=== PATIENT | female | born 1960 | race Caucasian/White ===

== ENCOUNTER 2016-09-10 21:15 | Emergency (ER) | payer OTHER ==
--- NOTE | 2016-09-10 22:32 | ED NURSING NOTES ---
Clinical Report - Nurses [facility] [place] [address] 09/10/2016 21:15 Patient: LIBERTY GONZALEZ TRIAGE Triage time 21:53. Acuity: LEVEL 4. Chief Complaint: MIGRAINE HEADACHE. 21:58. Alert. SEPSIS SCREEN: Sepsis Screen. Negative (no infection suspected/documented). ABRAHAM COMA SCORE: [place] Coma Scale: 15- eyes open spontaneously (4); best verbal response- oriented x 4 (5); best motor response- obeys commands (6). --21:58 Wilmer Dyer R.N. 21:53 09/10/16. BP: 126/69. HR: 94. RR: 16. O2 saturation: 97% on room air. Temp: 98.5 F (oral). Pain level now: 02/13. --21:58 Wilmer Dyer R.N. Weight: 77.1 kg stated. Height/Length: 64.5 inches Per Patient. BMI: 28.7. --21:56 Wilmer Dyer R.N. Medications Black Cohosh Oral. Ibuprofen Oral. Multivitamins Oral. --21:55 Wilmer Dyer R.N. Pravastatin Sodium Oral, daily (pt unsure of dose ). --21:56 Wilmer Dyer R.N. Medication/allergy information source: the patient. --21:58 Wilmer Dyer R.N. Allergies No Known Drug Allergy. --21:55 Wilmer Dyer R.N. History Arrived by private vehicle. Historian: patient. Accompanied by family. [facility] This started 1 1/2 weeks ago. 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 PAST MEDICAL HX: Immunizations: up-to-date. The patient has had a hysterectomy. SOCIAL HX: Current every day light tobacco smoker- less than 1/2 a pack per day. Occasional alcohol use. No drug use. No recent travel. No infectious disease exposure. ABUSE ASSESSMENT: No report of abuse. FALL RISK ASSESSMENT: Fall risk assessment completed. No fall risk identified. NUTRITIONAL RISK ASSESSMENT: The nutritional risk assessment revealed no deficiencies. FUNCTIONAL ASSESSMENT: Functional assessment: no impairments noted. LEARNING NEEDS ASSESSMENT: The learning needs assessment revealed no barriers. SKIN INTEGRITY ASSESSMENT: Skin integrity risk assessment completed. No skin integrity risk identified. --21:58 Wilmer Dyer R.N. PROBLEMS: Hypercholesterolemia. Ulcerative Colitis. Migraine Headache. Chronic Headache. Asthma. Eustachian Tube Dysfunction. Pharyngitis. Bronchitis. Colitis. Lumbar Radiculopathy. --21:57 Wilmer Dyer R.N. ADDITIONAL SURGERIES: Appendectomy. Cholecystectomy. Coak pouch. Coak pouch. Hysterectomy. Lower intestinal surgery. Lower intestine removal. Lower intestine removal. Oophorectomy. Salpingectomy. Tonsillectomy. --21:57 Wilmer Dyer R.N. Interventions ID band on patient. To treatment room. --21:58 Wilmer Dyer R.N. PHYSICAL ASSESSMENT 21:58. Ambulatory to room. Patient gowned. GENERAL / NEURO / PSYCH: Alert. Oriented X 4. Speech within normal limits. HEENT: No facial asymmetry noted. RESPIRATORY: Respirations not labored. SKIN: Skin is warm and dry. --21:58 Wilmer Dyer R.N. NURSING PROGRESS NOTES 21:58. Head of bed elevated. Two patient identifiers checked. Call light placed in reach. Bed placed in lowest position. Brakes of bed on. Patient ready for evaluation- chart flagged. --21:58 Wilmer Dyer R.N. 22:25 09/10/2016 Toradol (Ketorolac Tromethamine) IM 60 mg given. Given in the right ventral gluteus. Allergies verified and confirmed 5 rights. --22:29 Wilmer Dyer R.N. 22:25 09/10/2016 Benadryl (DiphenhydrAMINE HCl) IM 50 mg given. Given in the right ventral gluteus. Allergies verified, confirmed 5 rights and sedative warning given to the patient and patient's family. --22:29 Wilmer Dyer R.N. 22:26 09/10/2016 Reglan (Metoclopramide HCl) IM 10 mg given. Given in the left ventral gluteus. Allergies verified and confirmed 5 rights. --22:30 Wilmer Dyer R.N. 22:40 09/10/2016 Dilaudid (HYDROmorphone HCl PF) IM 1 mg given. Given in the left ventral gluteus. Allergies verified, confirmed 5 rights and sedative warning given to the patient and patient's family. --23:29 Wilmer Humphrey R.N. DISPOSITION / DISCHARGE 22:50 09/10/16. BP: 133/72. HR: 84. RR: 16. O2 saturation: 99% on room air. Temp: 98.3 F (oral). Pain level now: 11/14. --23:31 Wilmer Humphrey R.N. Departure time: 5. --23:33 Wilmer Humphrey R.N. 22:55. Condition at departure: improved. No learning barriers present. Discharge instructions provided and reviewed with the patient and spouse. Reviewed medication(s) dosing and course information (prescription given to pt). Reviewed referral to family practice for followup. Patient and spouse verbalized understanding. Written instructions provided in Colombian. The patient was discharged by the physician. She was discharged home and accompanied by spouse. She left the Emergency Department ambulatory and via private vehicle. Spouse driving. --23:37 Wilmer Humphrey R.N. Locked/Released at 09/10/2016 23:38 by Wilmer Humphrey R.N.
--- NOTE | 2016-09-10 22:32 | ED CLINICAL REPORT ---
Clinical Report - Physicians/Mid Levels [facility] [address] [place] [address] 09/10/2016 21:15 Patient: LIBERTY GONZALEZ Time Seen: 21:49; upon arrival, initial patient contact, initial documentation, patient care assumed. Arrived- By private vehicle. Historian- patient and spouse. HISTORY OF PRESENT ILLNESS Chief Complaint: HEADACHE and MIGRAINE HEADACHE. Is still present. This started about 1 1/2 weeks ago. It is described as similar to previous headaches and diffuse. No neck pain. Located in the facial region. At its maximum, severity described as severe. When seen in the E.D., severity described as severe. Modifying factors: worsened by bright light and noise; relieved by nothing. The patient has had photophobia and nausea. No preceding symptoms, blurred vision, numbness, weakness or vomiting. No recent travel. Similar symptoms previously: Frequently, as bad. Recent medical care: Not recently seen/assessed. REVIEW OF SYSTEMS No fever, muscle aches, sinus pressure, ear pain or sore throat. No head injury. All systems otherwise negative, except as recorded above. PAST HISTORY See nurses notes. PROBLEMS: Hypercholesterolemia. Ulcerative Colitis. Migraine Headache. Chronic Headache. Asthma. Eustachian Tube Dysfunction. Pharyngitis. Bronchitis. Colitis. Lumbar Radiculopathy. --21:57 Wilmer Dyer, R.N. ADDITIONAL SURGERIES: Appendectomy. Cholecystectomy. Coak pouch. Coak pouch. Hysterectomy. Lower intestinal surgery. Lower intestine removal. Lower intestine removal. Oophorectomy. Salpingectomy. Tonsillectomy. --21:57 Wilmer Dyer, R.N. SOCIAL HISTORY Light tobacco smoker. Occasional alcohol use. No drug use. No recent travel. Is a local resident. FAMILY HISTORY Negative. ADDITIONAL NOTES The nursing notes have been reviewed with agreement regarding the chief complaint, HPI, ROS, PMH and patient medications and allergies. PHYSICAL EXAM Vital Signs: 09/10/2016 21:53 BP: 126/69. HR: 94. RR: 16. O2 saturation: 97%. Temp: 98.5 F. Pain level now: 02/13. Have been reviewed as normal and appear to be correct. Appearance: Alert. No acute distress. Eyes: Pupils equal, round and reactive to light. Eyes normal inspection. ENT: Ears normal. Nose normal. Pharynx normal. Neck: Normal inspection. Neck supple. CVS: Normal heart rate and rhythm. Heart sounds normal. Pulses normal. Respiratory: No respiratory distress. Breath sounds normal. Back: Normal inspection. Skin: Skin warm and dry. Normal skin color. No rash. Normal skin turgor. Extremities: Extremities exhibit normal ROM. No lower extremity edema. Neuro: Oriented X 3. Alert. Mood/affect normal. Speech normal. Cranial nerves normal (as tested). No cerebellar findings. No motor deficit. No sensory deficit. PROGRESS AND PROCEDURES Patient and spouse counseled in person regarding the patient's stable condition and diagnosis. 22:32. Differential Diagnosis: I considered migraine, cluster headache, subarachnoid hemorrhage, intracranial bleed, vascular dissection, vasculitis, temporal arteritis, analgesic abuse, hypoglycemia and trigeminal neuralgia as a possible cause of headache in this patient. This is a partial list of diagnoses considered. Above considerations are based on history and physical exam. Differential diagnosis was discussed with patient and patient's spouse. Disposition: Discharged home in good and improved condition (22:32). Condition: good and stable. CLINICAL IMPRESSION Acute migraine headache without aura. INSTRUCTIONS Do not work today, tomorrow. Warnings: GENERAL WARNINGS: Return or contact your physician immediately if your condition worsens or changes unexpectedly, if not improving as expected, or if other problems arise. SPECIFICALLY, return if you develop fever, vomiting, numbness, weakness, difficulty thinking, visual disturbances, fainting or extreme fatigue. Prescription Medications: Zofran 4 mg: Take 1 orally every six hours as needed for nausea/vomiting. Dispense ten (10). No refills. Substitution is permissible. Fioricet: Take 1-2 orally every 4 hours as needed for headache. Dispense twenty (20). No refills. Substitution is permissible. Follow-up: Follow up with your doctor in about three days as needed. Call for an appointment. Summary of care provided to patient and family. Understanding of the discharge instructions verbalized by patient. (Electronically signed by Amber Smith A.R.N.P. 09/10/2016 23:15)
--- NOTE | 2016-09-10 22:32 | ED NURSING NOTES ---
Clinical Report - Nurses [facility] [place] [place] [address] 09/10/2016 21:15 Patient: LIBERTY GONZALEZ TRIAGE Triage time 21:53. Acuity: LEVEL 4. Chief Complaint: MIGRAINE HEADACHE. 21:58. Alert. SEPSIS SCREEN: Sepsis Screen. Negative (no infection suspected/documented). ABRAHAM COMA SCORE: [place] Coma Scale: 15- eyes open spontaneously (4); best verbal response- oriented x 4 (5); best motor response- obeys commands (6). --21:58 Wilmer Dyer R.N. 21:53 09/10/16. BP: 126/69. HR: 94. RR: 16. O2 saturation: 97% on room air. Temp: 98.5 F (oral). Pain level now: 02/13. --21:58 Wilmer Dyer R.N. Weight: 77.1 kg stated. Height/Length: 64.5 inches Per Patient. BMI: 28.7. --21:56 Wilmer Dyer R.N. Medications Black Cohosh Oral. Ibuprofen Oral. Multivitamins Oral. --21:55 Wilmer Dyer R.N. Pravastatin Sodium Oral, daily (pt unsure of dose ). --21:56 Wilmer Dyer R.N. Medication/allergy information source: the patient. --21:58 Wilmer Dyer R.N. Allergies No Known Drug Allergy. --21:55 Wilmer Dyer R.N. History Arrived by private vehicle. Historian: patient. Accompanied by family. [facility] This started 1 1/2 weeks ago. 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 PAST MEDICAL HX: Immunizations: up-to-date. The patient has had a hysterectomy. SOCIAL HX: Current every day light tobacco smoker- less than 1/2 a pack per day. Occasional alcohol use. No drug use. No recent travel. No infectious disease exposure. ABUSE ASSESSMENT: No report of abuse. FALL RISK ASSESSMENT: Fall risk assessment completed. No fall risk identified. NUTRITIONAL RISK ASSESSMENT: The nutritional risk assessment revealed no deficiencies. FUNCTIONAL ASSESSMENT: Functional assessment: no impairments noted. LEARNING NEEDS ASSESSMENT: The learning needs assessment revealed no barriers. SKIN INTEGRITY ASSESSMENT: Skin integrity risk assessment completed. No skin integrity risk identified. --21:58 Wilmer Dyer R.N. PROBLEMS: Hypercholesterolemia. Ulcerative Colitis. Migraine Headache. Chronic Headache. Asthma. Eustachian Tube Dysfunction. Pharyngitis. Bronchitis. Colitis. Lumbar Radiculopathy. --21:57 Wilmer Dyer R.N. ADDITIONAL SURGERIES: Appendectomy. Cholecystectomy. Coak pouch. Coak pouch. Hysterectomy. Lower intestinal surgery. Lower intestine removal. Lower intestine removal. Oophorectomy. Salpingectomy. Tonsillectomy. --21:57 Wilmer Dyer R.N. Interventions ID band on patient. To treatment room. --21:58 Wilmer Dyer R.N. PHYSICAL ASSESSMENT 21:58. Ambulatory to room. Patient gowned. GENERAL / NEURO / PSYCH: Alert. Oriented X 4. Speech within normal limits. HEENT: No facial asymmetry noted. RESPIRATORY: Respirations not labored. SKIN: Skin is warm and dry. --21:58 Wilmer Dyer R.N. NURSING PROGRESS NOTES 21:58. Head of bed elevated. Two patient identifiers checked. Call light placed in reach. Bed placed in lowest position. Brakes of bed on. Patient ready for evaluation- chart flagged. --21:58 Wilmer Dyer R.N. 22:25 09/10/2016 Toradol (Ketorolac Tromethamine) IM 60 mg given. Given in the right ventral gluteus. Allergies verified and confirmed 5 rights. --22:29 Wilmer Dyer R.N. 22:25 09/10/2016 Benadryl (DiphenhydrAMINE HCl) IM 50 mg given. Given in the right ventral gluteus. Allergies verified, confirmed 5 rights and sedative warning given to the patient and patient's family. --22:29 Wilmer Dyer R.N. 22:26 09/10/2016 Reglan (Metoclopramide HCl) IM 10 mg given. Given in the left ventral gluteus. Allergies verified and confirmed 5 rights. --22:30 Wilmer Dyer R.N. 22:40 09/10/2016 Dilaudid (HYDROmorphone HCl PF) IM 1 mg given. Given in the left ventral gluteus. Allergies verified, confirmed 5 rights and sedative warning given to the patient and patient's family. --23:29 Wilmer Humphrey R.N. DISPOSITION / DISCHARGE 22:50 09/10/16. BP: 133/72. HR: 84. RR: 16. O2 saturation: 99% on room air. Temp: 98.3 F (oral). Pain level now: 11/14. --23:31 Wilmer Humphrey R.N. Departure time: 5. --23:33 Wilmer Humphrey R.N. 22:55. Condition at departure: improved. No learning barriers present. Discharge instructions provided and reviewed with the patient and spouse. Reviewed medication(s) dosing and course information (prescription given to pt). Reviewed referral to family practice for followup. Patient and spouse verbalized understanding. Written instructions provided in [place] Island[place]. The patient was discharged by the physician. She was discharged home and accompanied by spouse. She left the Emergency Department ambulatory and via private vehicle. Spouse driving. --23:37 Wilmer Humphrey R.N. Locked/Released at 09/10/2016 23:38 by Wilmer Humphrey R.N.
--- NOTE | 2016-09-10 22:33 | ED ORDER SUMMARY ---
..... Patient: LIBERTY GONZALEZ OrderSheet [facility] VisitID: [id number] [place] [address] 56y, F Registration Date/Time: 09/10/2016 ORDER SHEET Weight: 77.1 kg (stated) Allergies: No Known Drug Allergy GENERAL ORDERS: MEDICATION ORDERS: Toradol IM 60 mg (NOW) (22:13 09/10/2016 HBivens A.R.N.P.) (Ack 22:16 JQuivey R.N.) (22:29 JQuivey R.N.) Benadryl IM 50 mg (NOW) (22:13 09/10/2016 HBivens A.R.N.P.) (Ack 22:16 JQuivey R.N.) (22:29 JQuivey R.N.) - (reglan 10mg im stat) (22:13 09/10/2016 HBivens A.R.N.P.) (Ack 22:16 JQuivey R.N.) (22:30 JQuivey R.N.) Dilaudid IM 1 mg (HIGH ALERT MEDICATION, NOW) (22:48 09/10/2016 HBivens A.R.N.P.) (Ack 22:50 JQuivey R.N.) (23:29 JRomanelli R.N.) IV FLUIDS: ORDER SHEET NOTES: [Electronically signed by Amber SmithR.N.P. (23:15 09/10/2016)] [Electronically signed by Wilmer Humphrey R.N. (23:38 09/10/2016)] [Electronically locked/signed by Wilmer Humphrey R.N. (23:38 09/10/2016)]
--- NOTE | 2016-09-10 22:33 | ED ORDER SUMMARY ---
..... Patient: LIBERTY GONZALEZ OrderSheet [facility] VisitID: [id number] [place] [address] 56y, F Registration Date/Time: 09/10/2016 ORDER SHEET Weight: 77.1 kg (stated) Allergies: No Known Drug Allergy GENERAL ORDERS: MEDICATION ORDERS: Toradol IM 60 mg (NOW) (22:13 09/10/2016 HBivens A.R.N.P.) (Ack 22:16 JQuivey R.N.) (22:29 JQuivey R.N.) Benadryl IM 50 mg (NOW) (22:13 09/10/2016 HBivens A.R.N.P.) (Ack 22:16 JQuivey R.N.) (22:29 JQuivey R.N.) - (reglan 10mg im stat) (22:13 09/10/2016 HBivens A.R.N.P.) (Ack 22:16 JQuivey R.N.) (22:30 JQuivey R.N.) Dilaudid IM 1 mg (HIGH ALERT MEDICATION, NOW) (22:48 09/10/2016 HBivens A.R.N.P.) (Ack 22:50 JQuivey R.N.) (23:29 JRomanelli R.N.) IV FLUIDS: ORDER SHEET NOTES: [Electronically signed by Amber SmithR.N.P. (23:15 09/10/2016)] [Electronically signed by Wilmer Humphrey R.N. (23:38 09/10/2016)] [Electronically locked/signed by Wilmer Humphrey R.N. (23:38 09/10/2016)]
--- NOTE | 2016-09-10 23:39 | ED MAR SUMMARY ---
..... Medication Administration Record [facility] [address] [place] [address] Patient: LIBERTY GONZALEZ Visit ID: [id number] 56y, F Weight: 77.1 kg Height/Length: 64.5 in BMI: 28.7 ALLERGIES: No Known Drug Allergy Given 22:09/10/2016 Wilmer Dyer RDeoNDeo Medication Administered: TORADOL [IM] (KETOROLAC TROMETHAMINE), Dose: 60 mg IM. Medication Ordered: Toradol IM 60 mg (NOW). Given 22:09/10/2016 Wilmer Dyer R.NDeo Medication Administered: BENADRYL [IM] (DIPHENHYDRAMINE HCL), Dose: 50 mg IM. Medication Ordered: Benadryl IM 50 mg (NOW). Given 22:09/10/2016 Wilmer Dyer RDeoNDeo Medication Administered: REGLAN [IM] (METOCLOPRAMIDE HCL), Dose: 10 mg IM. Medication Ordered: - (reglan 10mg im stat). Given 22:09/10/2016 Wilmer Humphrey RDeoNDeo Medication Administered: DILAUDID [IM] (HYDROMORPHONE HCL PF), Dose: 1 mg IM. Medication Ordered: Dilaudid IM 1 mg (HIGH ALERT MEDICATION, NOW).
--- NOTE | 2016-09-10 23:39 | ED MED RECONCILIATION SUMMARY ---
Patient: LIBERTY GONZALEZ Medication Reconciliation Report [facility] VisitID: [id number] [address] [place] [address] 56y, F Registration Date/Time: 09/10/2016 Weight: 77.1 kg Height/Length: 60 in. BMI: 28.7 ALLERGIES: No Known Drug Allergy The patient's Home Medications are listed below: THE FOLLOWING MEDICATIONS NEED TO BE RECONCILED: Black Cohosh Oral Ibuprofen Oral Multivitamins Oral Pravastatin Sodium Oral, daily, pt unsure of dose The source(s) of the original Home Medication information: patient The following Medications were given to the patient in the Emergency Department: Toradol [IM] IM 60 mg, administered: 09/10/2016 10:25:00 PM Benadryl [IM] IM 50 mg, administered: 09/10/2016 10:25:00 PM Reglan [IM] IM 10 mg, administered: 09/10/2016 10:26:00 PM Dilaudid [IM] IM 1 mg, administered: 09/10/2016 10:40:00 PM The following Medications were prescribed to the patient: Zofran 4 mg: Take 1 orally every six hours as needed for nausea/vomiting. Dispense ten (10). No refills. Substitution is permissible. -- Amber Smith, A.R.N.P. Fioricet: Take 1-2 orally every 4 hours as needed for headache. Dispense twenty (20). No refills. Substitution is permissible. -- Amber Smith, A.R.N.P.
--- NOTE | 2016-09-10 23:39 | ED MAR SUMMARY ---
..... Medication Administration Record [facility] [address] [place] [address] Patient: LIBERTY GONZALEZ Visit ID: [id number] 56y, F Weight: 77.1 kg Height/Length: 64.5 in BMI: 28.7 ALLERGIES: No Known Drug Allergy Given 22:09/10/2016 Wilmer Dyer RDeoNDeo Medication Administered: TORADOL [IM] (KETOROLAC TROMETHAMINE), Dose: 60 mg IM. Medication Ordered: Toradol IM 60 mg (NOW). Given 22:09/10/2016 Wilmer Dyer R.NDeo Medication Administered: BENADRYL [IM] (DIPHENHYDRAMINE HCL), Dose: 50 mg IM. Medication Ordered: Benadryl IM 50 mg (NOW). Given 22:09/10/2016 Wilmer Dyer RDeoNDeo Medication Administered: REGLAN [IM] (METOCLOPRAMIDE HCL), Dose: 10 mg IM. Medication Ordered: - (reglan 10mg im stat). Given 22:09/10/2016 Wilmer Humphrey RDeoNDeo Medication Administered: DILAUDID [IM] (HYDROMORPHONE HCL PF), Dose: 1 mg IM. Medication Ordered: Dilaudid IM 1 mg (HIGH ALERT MEDICATION, NOW).
--- NOTE | 2016-09-10 23:39 | ED MED RECONCILIATION SUMMARY ---
Patient: LIBERTY GONZALEZ Medication Reconciliation Report [facility] VisitID: [id number] [address] [place] [address] 56y, F Registration Date/Time: 09/10/2016 Weight: 77.1 kg Height/Length: 60 in. BMI: 28.7 ALLERGIES: No Known Drug Allergy The patient's Home Medications are listed below: THE FOLLOWING MEDICATIONS NEED TO BE RECONCILED: Black Cohosh Oral Ibuprofen Oral Multivitamins Oral Pravastatin Sodium Oral, daily, pt unsure of dose The source(s) of the original Home Medication information: patient The following Medications were given to the patient in the Emergency Department: Toradol [IM] IM 60 mg, administered: 09/10/2016 10:25:00 PM Benadryl [IM] IM 50 mg, administered: 09/10/2016 10:25:00 PM Reglan [IM] IM 10 mg, administered: 09/10/2016 10:26:00 PM Dilaudid [IM] IM 1 mg, administered: 09/10/2016 10:40:00 PM The following Medications were prescribed to the patient: Zofran 4 mg: Take 1 orally every six hours as needed for nausea/vomiting. Dispense ten (10). No refills. Substitution is permissible. -- Amber Smith, A.R.N.P. Fioricet: Take 1-2 orally every 4 hours as needed for headache. Dispense twenty (20). No refills. Substitution is permissible. -- Amber Smith, A.R.N.P.
--- NOTE | 2016-09-10 23:39 | ED DISCHARGE INSTRUCTIONS ---
Patient: LIBERTY GONZALEZ General Instructions [facility] VisitID: [id number] [place] [address] 56y, F Registration Date/Time: 09/10/2016 Acute migraine headache without aura. INSTRUCTIONS Do not work today, tomorrow. Warnings: GENERAL WARNINGS: Return or contact your physician immediately if your condition worsens or changes unexpectedly, if not improving as expected, or if other problems arise. SPECIFICALLY, return if you develop fever, vomiting, numbness, weakness, difficulty thinking, visual disturbances, fainting or extreme fatigue. Prescription Medications: Zofran 4 mg: Take 1 orally every six hours as needed for nausea/vomiting. Dispense ten (10). No refills. Substitution is permissible. Fioricet: Take 1-2 orally every 4 hours as needed for headache. Dispense twenty (20). No refills. Substitution is permissible. Follow-up: Follow up with your doctor in about three days as needed. Call for an appointment. Summary of care provided to patient and family. Understanding of the discharge instructions verbalized by patient. ADDITIONAL INFORMATION Migraine Headache Migraine headaches are related to changes in blood flow to the brain. This causes throbbing or constant pain on one or both sides of the head. The pain may last from a few hours to several days. There is usually nausea, vomiting, sensitivity to light and sound, and blurred vision. A migraine attack may be triggered by emotional stress, hormone changes during the menstrual cycle, oral contraceptives, alcohol use, certain foods containing tyramine, eye strain, weather changes, missing meals, or too little or too much sleep. Home Care For This Headache: 1) If you were given pain medicine for this headache, do not drive yourself home . Arrange for a ride, instead. When you get home, try to sleep. You should feel much better when you wake up. 2) Migraine headaches may improve with an ice pack on the forehead or at the base of the skull. Heat to the back of your neck may relieve any neck spasm. 3) Drink only clear liquids or eat a very light diet to avoid nausea/vomiting until symptoms improve. Preventing Future Headaches: 1) Pay attention to those factors that seem to trigger your headache. Try to avoid them when you can. If you have frequent headaches, it is useful to keep a diary of what you were doing, feeling or eating in the hours before each attack. Show this to your doctor to help find the cause of your headaches. a) If you feel that stress is a factor in your headaches, look at the sources of stress in your life. Find ways to release the build-up of those stresses by using regular exercise, relaxation methods (yoga, meditation), bio-feedback or simply taking time-out for yourself. For more information about this, consult your doctor or go to a local bookstore and review books and tapes on this subject. b) Tyramine is a substance present in the following foods : chocolate, yogurt, all cheeses except cottage cheese and cream cheese. smoked or pickled fish and meat (including jean, caviar, bologna, pepperoni, salami), liver, avocados, bananas, figs, raisins, and red wine. Be aware that these foods may trigger a migraine in some persons. Try taking these foods out of your diet for 1-2 months to see if this reduces headache frequency. Treating Future Attacks: 1) At the first sign of a headache, take time out if possible. Find a quiet, dark, comfortable place to sit or lie down. Let yourself relax or sleep. 2) An ice pack on the forehead or area of greatest pain may help. If you are having muscle spasm and tightness of the neck, a heating pad and massage to this area may be helpful. 3) If you have been prescribed a medicine to stop a migraine headache, use this at the very first warning sign of the headache (aura or initial pain) for best results. Follow Up with your doctor if the headache is not better within the next 24 hours. If you have frequent headaches you should discuss a treatment plan with your primary care doctor. Ask if you can have medicine to take at home the next time you get a bad headache. Poorly controlled chronic headaches may require a referral to a neurologist (headache specialist). Get Prompt Medical Attention if any of the following occur: Your head pain gets worse, or does not improve within 24 hours Repeated vomiting (cant keep liquids down) Sinus or ear or throat pain (not already reported) Fever of 100.4 F (38 C) or higher, or as directed by your healthcare provider Stiff neck Extreme drowsiness, confusion or fainting Dizziness, vertigo (dizziness with spinning sensation) Weakness of an arm or leg or one side of the face Difficulty with speech or vision Ondansetron Oral disintegrating tablet What is this medicine? ONDANSETRON (on JESSEE se amber) is used to treat nausea and vomiting caused by chemotherapy. It is also used to prevent or treat nausea and vomiting after surgery. How should I use this medicine? These tablets are made to dissolve in the mouth. Do not try to push the tablet through the foil backing. With dry hands, peel away the foil backing and gently remove the tablet. Place the tablet in the mouth and allow it to dissolve, then swallow. While you may take these tablets with water, it is not necessary to do so. Talk to your almond cutting machine tender regarding the use of this medicine in children. Special care may be needed. What side effects may I notice from receiving this medicine? Side effects that you should report to your doctor or health healthcare economics consultant as soon as possible: allergic reactions like skin rash, itching or hives, swelling of the face, lips, or tongue breathing problems dizziness fast or irregular heartbeat feeling faint or lightheaded, falls fever and chills swelling of the hands and feet tightness in the chest Side effects that usually do not require medical attention (report to your doctor or health healthcare economics consultant if they continue or are bothersome): constipation or diarrhea headache What may interact with this medicine? Do not take this medicine with any of the following medications: -apomorphine -cisapride -dofetilide -dronedarone -pimozide -thioridazine -ziprasidone This medicine may also interact with the following medications: -carbamazepine -phenytoin -rifampicin -tramadol -other medicines that prolong the QT interval (cause an abnormal heart rhythm) What if I miss a dose? If you miss a dose, take it as soon as you can. If it is almost time for your next dose, take only that dose. Do not take double or extra doses. Where should I keep my medicine? Keep out of the reach of children. Store between 2 and 30 degrees C (36 and 86 degrees F). Throw away any unused medicine after the expiration date. What should I tell my health care provider before I take this medicine? They need to know if you have any of these conditions: heart disease history of irregular heartbeat liver disease low levels of magnesium or potassium in the blood an unusual or allergic reaction to ondansetron, granisetron, other medicines, foods, dyes, or preservatives or trying to get breast-feeding What should I watch for while using this medicine? Check with your doctor or health healthcare economics consultant as soon as you can if you have any sign of an allergic reaction. Butalbital, Acetaminophen, Caffeine Oral tablet What is this medicine? ACETAMINOPHEN; BUTALBITAL; CAFFEINE (a set a CHEYANNE tam fen; byoo STELLA bi stella; KAF een) is a pain reliever. It is used to treat tension headaches. How should I use this medicine? Take this medicine by mouth with a full glass of water. Follow the directions on the prescription label. If the medicine upsets your stomach, take the medicine with food or milk. Do not take more than you are told to take. Talk to your almond cutting machine tender regarding the use of this medicine in children. Special care may be needed. What side effects may I notice from receiving this medicine? Side effects that you should report to your doctor or health healthcare economics consultant as soon as possible: allergic reactions like skin rash, itching or hives, swelling of the face, lips, or tongue breathing problems confusion feeling faint or lightheaded, falls redness, blistering, peeling or loosening of the skin, including inside the mouth seizure stomach pain yellowing of the eyes or skin Side effects that usually do not require medical attention (report to your doctor or health healthcare economics consultant if they continue or are bothersome): constipation nausea, vomiting What may interact with this medicine? alcohol or medicines that contain alcohol antidepressants, especially MAOIs like isocarboxazid, phenelzine, tranylcypromine, and selegiline antihistamines benzodiazepines carbamazepine isoniazid medicines for pain like pentazocine, buprenorphine, butorphanol, nalbuphine, tramadol, and propoxyphene muscle relaxants naltrexone phenobarbital, phenytoin, and fosphenytoin phenothiazines like perphenazine, thioridazine, chlorpromazine, mesoridazine, fluphenazine, prochlorperazine, promazine, and trifluoperazine voriconazole What if I miss a dose? If you miss a dose, take it as soon as you can. If it is almost time for your next dose, take only that dose. Do not take double or extra doses. Where should I keep my medicine? Keep out of the reach of children. This medicine can be abused. Keep your medicine in a safe place to protect it from theft. Do not share this medicine with anyone. Selling or giving away this medicine is dangerous and against the law. Store at room temperature between 15 and 30 degrees C (59 and 86 degrees F). Keep container tightly closed. Protect from light. Throw away any unused medicine after the expiration date. What should I tell my health care provider before I take this medicine? They need to know if you have any of these conditions: drink more than 3 alcohol-containing drinks per day drug abuse or addiction heart or circulation problems kidney disease or problems going to the bathroom liver disease lung disease, asthma, or breathing problems porphyria an unusual or allergic reaction to acetaminophen, butalbital or other barbiturates, caffeine, other medicines, foods, dyes, or preservatives or trying to get breast-feeding What should I watch for while using this medicine? Tell your doctor or health healthcare economics consultant if your pain does not go away, if it gets worse, or if you have new or a different type of pain. You may develop tolerance to the medicine. Tolerance means that you will need a higher dose of the medicine for pain relief. Tolerance is normal and is expected if you take the medicine for a long time. Do not suddenly stop taking your medicine because you may develop a severe reaction. Your body becomes used to the medicine. This does NOT mean you are addicted. Addiction is a behavior related to getting and using a drug for a non-medical reason. If you have pain, you have a medical reason to take pain medicine. Your doctor will tell you how much medicine to take. If your doctor wants you to stop the medicine, the dose will be slowly lowered over time to avoid any side effects. You may get drowsy or dizzy when you first start taking the medicine or change doses. Do not drive, use machinery, or do anything that may be dangerous until you know how the medicine affects you. Stand or sit up slowly. Do not take other medicines that contain acetaminophen with this medicine. Always read labels carefully. If you have questions, ask your doctor or pharmacist. If you take too much acetaminophen get medical help right away. Too much acetaminophen can be very dangerous and cause liver damage. Even if you do not have symptoms, it is important to get help right away. You have been given the following additional information: Headache, Migraine (Classical) Ondansetron Oral disintegrating tablet Butalbital, Acetaminophen, Caffeine Oral tablet Do not work today, tomorrow. (Electronically signed by Amber Smith A.R.N.P. 09/10/2016 23:15)
== END 2016-09-10 22:55 | disposition home or self-care (01) ==
LOC: ED SRH 21:15
DX: G43.009 Migraine without aura, not intractable, without status migrainosus (principal); F17.210 Nicotine dependence, cigarettes, uncomplicated; J45.909 Unspecified asthma, uncomplicated; Z79.899 Other long term (current) drug therapy

== ENCOUNTER 2016-09-13 21:56 | Emergency (ER) | payer OTHER ==
--- NOTE | 2016-09-14 01:11 | ED NURSING NOTES ---
Clinical Report - Nurses [facility] [address] [place] [address] 09/13/2016 21:56 Patient: LIBERTY GONZALEZ TRIAGE Triage time 22:08 Sep 13 2016. Acuity: LEVEL 3. Chief Complaint: MIGRAINE HEADACHE. --22:11 Alin Cedillo R.N. 22:08 09/13/16. BP: 144/83. HR: 109. RR: 18. O2 saturation: 96%. Temp: 97.4 F. Pain level now 04/16. --22:11 Alin Cedillo R.N. Weight: 77.1 kg stated. Height/Length: 64 inches Per Patient. BMI: 29.2. --22:09 Alin Cedillo R.N. Medications Black Cohosh Oral. Ibuprofen Oral. Multivitamins Oral. Pravastatin Sodium Oral, daily (pt unsure of dose ). --22: Alin Cedillo R.N. Allergies No Known Drug Allergy. --22:09 Alin Cedillo R.N. History Arrived by private vehicle. ( Pt reports migraine CRAIG for two weeks was seen her on sat for the same given prescriptions for meds report that they are not helping). The patient has had nausea. No vomiting. SOCIAL HX: Light tobacco smoker. No alcohol use or drug use. --22:11 Alin Cedillo R.N. PROBLEMS: Hypercholesterolemia. Abscess. Ulcerative Colitis. Migraine Headache. Chronic Headache. Sinus Problems. Headache. Asthma. Eustachian Tube Dysfunction. Pharyngitis. Sinusitis. Bronchitis. URI. Immunizations. Colitis. Lumbar Radiculopathy. Vomiting. --22:10 Alin Cedillo R.N. ADDITIONAL SURGERIES: Appendectomy. Cholecystectomy. Coak pouch. Coak pouch. Hysterectomy. Lower intestinal surgery. Lower intestine removal. Lower intestine removal. Oophorectomy. Salpingectomy. Tonsillectomy. --22:10 Alin Cedillo R.N. Interventions ID band on patient. To treatment room. --22:11 Alin Cedillo R.N. PHYSICAL ASSESSMENT GENERAL / NEURO / PSYCH: Alert. Oriented X 4. Appears in no acute distress. Speech within normal limits. HEENT: No facial asymmetry noted. Pupils equal, round and reactive to light. RESPIRATORY: Respirations not labored. Breath sounds within normal limits. GI / : Abdomen soft and nontender. SKIN: Skin is warm and dry. --22:11 Alin Cedillo R.N. NURSING PROGRESS NOTES Patient gowned. Lights dimmed. Side rails up x 1. Bed placed in lowest position. Brakes of bed on. --22:11 Alin Cedillo R.N. 22:29. Care transferred and report received. --22:29 Wilmer Dyer R.N. 00:02 09/14/2016 Site #1 started via IV in the right antecubital space with an 20g angiocath, with aseptic technique and good blood return; one attempt. Blood drawn: rainbow set. Labeled in the presence of the patient and sent to the lab. --00:10 Wilmer Dyer R.N. 00:02 09/14/2016 Started bag #1 1000 mL IV Fluids IV NS (Saline); at 1000 mL/hr over 1 hour(s) via site #1 --00:11 Wilmer Dyer R.N. 00:03 09/14/2016 Zofran (Ondansetron HCl) IVP 4 mg given over 2 minute(s) via site #1. Allergies verified and confirmed 5 rights. IV patency established. IV site checked: no pain, redness, or swelling. IV flushed thoroughly pre- and post-medication administration. --00:11 Wilmer Dyer R.N. 00:05 09/14/2016 Toradol IVP 30 mg given over 2 minute(s) via site #1. Allergies verified and confirmed 5 rights. IV patency established. IV site checked: no pain, redness, or swelling. IV flushed thoroughly pre- and post-medication administration. --00:12 Wilmer Dyer R.N. 00:07 09/14/2016 HALDOL (Haloperidol Lactate) IVP 2 mg given over 2 minute(s) via site #1. Allergies verified, confirmed 5 rights and sedative warning given to the patient and patient's industrial manufacturing technician. IV patency established. IV site checked: no pain, redness, or swelling. IV flushed thoroughly pre- and post-medication administration. --00:12 Wilmer Dyer R.N. 00:35 09/14/16. BP: 107/64. HR: 91. RR: 16. O2 saturation: 100% on room air. --00:36 Wilmer Dyer R.N. 00:35 Patient states she feels a little better. The patient is calm and resting quietly. GENERAL / NEURO / PSYCH: Alert. Oriented X 4. RESPIRATORY: No respiratory distress. SKIN: Skin is warm and dry. Skin color within normal limits. --00:36 Wilmer Dyer R.N. 00:39 09/14/2016 HALDOL (Haloperidol Lactate) IVP 2 mg given over 1 minute(s) via site #1. Allergies verified and confirmed 5 rights. IV patency established. IV site checked: no pain, redness, or swelling. IV flushed thoroughly pre- and post-medication administration. --00:39 Wilmer Dyer R.N. 01:06 09/14/2016 IV Fluids IV NS Discontinued: bag #1 infused. Total amount infused: 1000 mL. IV patency established. IV site checked: no pain, redness, or swelling. IV flushed thoroughly. --01:10 Wilmer Dyer R.N. 01:10 Patient assisted to restroom - reports feeling much better. --01:11 Wilmer Dyer R.N. 01:30. The patient is calm and resting quietly. Overall patient status is improved- she states feels better. GENERAL / NEURO / PSYCH: Alert. Oriented X 4. RESPIRATORY: No respiratory distress. SKIN: Skin is warm and dry. Skin color within normal limits. --01:33 Wilmer Dyer R.N. DISPOSITION / DISCHARGE Departure time: 01:32. Condition at departure: stable. No learning barriers present. Discharge instructions provided and reviewed with the patient and spouse. Patient and spouse verbalized understanding. Written instructions provided in Omani. The patient was discharged home and accompanied by spouse. She left the Emergency Department ambulatory and via private vehicle. Spouse driving. FALL RISK ASSESSMENT: Fall risk assessment completed. No fall risk identified. --01:32 Wilmer Dyer R.N. 01:20 09/14/16. BP: 108/60. HR: 89. RR: 15. O2 saturation: 95% on room air. Pain level now: 0/10. --01:32 Wilmer Dyer R.N. 01:24 09/14/2016 Site #1 removed upon discharge. Catheter intact. Bandage applied. --01:32 Wilmer Dyer R.N. Locked/Released at 09/14/2016 1:33 by Wilmer Dyer R.N.
--- NOTE | 2016-09-14 01:11 | ED ORDER SUMMARY ---
..... Patient: LIBERTY GONZALEZ OrderSheet [facility] VisitID: [id number] [address] [place] [address] 56y, F Registration Date/Time: 09/13/2016 ORDER SHEET Weight: 77.1 kg (stated) Allergies: No Known Drug Allergy GENERAL ORDERS: MEDICATION ORDERS: IV FLUIDS: Haldol IV 2 mg (HIGH ALERT MEDICATION, NOW) (23:42 09/13/2016 Britney DOMINGUEZ) (Ack 23:51 JQuivey R.N.) (0:12 JQuivey R.N.) Toradol IV 30 mg (NOW) (:42 09/13/2016 Britney DOMINGUEZ) (Ack 23:51 JQuivey R.N.) (0:12 JQuivey R.N.) Zofran IV 4 mg (NOW) (:43 09/13/2016 Britney DOMINGUEZ) (Ack 23:51 JQuivey R.N.) (0:11 JQuivey R.N.) IV NS : initial bolus 1000 mL (1000 mL/hr), then none - for X1 (NOW); Urgent (23:43 09/13/2016 Britney DOMINGUEZ) (Ack 23:51 JQuivey R.N.) (0:11 JQuivey R.N.) Haldol IV 2 mg (NOW) (00:39 09/14/2016 JQuivey R.N. verbal order read back to Britney DOMINGUEZ) (0:39 JQuivey R.N.) ORDER SHEET NOTES: [Electronically signed by Wilmer Dyer R.N. (01:33 09/14/2016)] [Electronically signed by Michele Lazaro MD (11:54 09/22/2016)] [Electronically locked/signed by Wilmer Dyer R.N. (01:33 09/14/2016)]
--- NOTE | 2016-09-14 01:11 | ED CLINICAL REPORT ---
Clinical Report - Physicians/Mid Levels [facility] [address] [place] [address] 09/13/2016 21:56 Patient: LIBERTY GONZALEZ Time Seen: 22:30. Arrived- By private vehicle. Historian- patient. HISTORY OF PRESENT ILLNESS Chief Complaint: HEADACHE. Is still present. This started about 2 weeks ago. It was abrupt in onset and has been waxing/waning. It is described as similar to previous headaches and pressure. Located in the region of the right eye and left eye and occipital region and has had neck pain (she says taht this is chronic - she has had this over the past several). At its maximum, severity described as severe. When seen in the E.D., severity described as severe. The patient has had blurred vision, photophobia and nausea. No preceding symptoms, numbness, weakness or vomiting. No recent travel. Similar symptoms previously: Many times. Recent medical care: The patient was seen recently at this facility and another facility in a clinic. Diagnosis: migraine. REVIEW OF SYSTEMS No carbon monoxide exposure. All systems otherwise negative, except as recorded above. PAST HISTORY PCP - Asa. Problems: Hypercholesterolemia. Abscess. Ulcerative Colitis. Migraine Headache. Chronic Headache. Sinus Problems. Headache. Asthma. Eustachian Tube Dysfunction. Pharyngitis. Sinusitis. Bronchitis. URI. Immunizations. Colitis. Lumbar Radiculopathy. Vomiting. Additional Surgeries: Appendectomy. Cholecystectomy. Coak pouch. Coak pouch. Hysterectomy. Lower intestinal surgery. Lower intestine removal. Lower intestine removal. Oophorectomy. Salpingectomy. Tonsillectomy. Medications: Black Cohosh Oral. Ibuprofen Oral. Multivitamins Oral. Pravastatin Sodium Oral, daily (pt unsure of dose ). Allergies: No Known Drug Allergy. SOCIAL HISTORY Current every day light tobacco smoker (cigarette)- less than 1/2 a pack per day. Occasional alcohol use. No drug use. FAMILY HISTORY Denies family medical history. ADDITIONAL NOTES The nursing notes have been reviewed. PHYSICAL EXAM Vital Signs: 09/13/2016 22:08 BP: 144/83. HR: 109. RR: 18. O2 saturation: 96%. Temp: 97.4 F. Have been reviewed. Appearance: Alert. Eyes: Photophobia present. Pupils equal, round and reactive to light. ENT: Pharynx normal. Neck: Normal inspection. Neck supple. CVS: Normal heart rate and rhythm. Heart sounds normal. Respiratory: No respiratory distress. Breath sounds normal. Abdomen: Soft and nontender. No organomegaly. Back: Normal inspection. Skin: Skin warm and dry. Normal skin color. Normal skin turgor. Extremities: Extremities exhibit normal ROM. No calf tenderness. No lower extremity edema. Neuro: Alert. Mood/affect normal. Speech normal. Cranial nerves normal (as tested). No cerebellar findings. No motor deficit. No sensory deficit. PROGRESS AND PROCEDURES Course of Care: Symptoms better. Vital signs have been reviewed. Physical exam findings are improved. Alert. Breath sounds normal. No respiratory distress. Normal heart rate and rhythm. Heart sounds normal. Abdomen soft and nontender. Skin warm and dry. Patient/family counseled. Old medical records reviewed. Disposition: Discharged. Condition: stable. CLINICAL IMPRESSION Chronic migraine headache- poorly controlled. INSTRUCTIONS No driving or operating machinery while taking medication. Sedative medication was given during your visit. Warnings: Further evaluation is necessary. GENERAL WARNINGS: Return or contact your physician immediately if your condition worsens or changes unexpectedly, if not improving as expected, or if other problems arise. Follow-up: Follow up with your doctor tomorrow. Call for an appointment. Follow up with a neurologist- as recommended by your primary care physician. Understanding of the discharge instructions verbalized by patient and family. (Electronically signed by Michele Lazaro MD 09/22/2016 11:54)
--- NOTE | 2016-09-14 01:11 | ED ORDER SUMMARY ---
..... Patient: LIBERTY GONZALEZ OrderSheet [facility] VisitID: [id number] [address] [place] [address] 56y, F Registration Date/Time: 09/13/2016 ORDER SHEET Weight: 77.1 kg (stated) Allergies: No Known Drug Allergy GENERAL ORDERS: MEDICATION ORDERS: IV FLUIDS: Haldol IV 2 mg (HIGH ALERT MEDICATION, NOW) (23:42 09/13/2016 Britney DOMINGUEZ) (Ack 23:51 JQuivey R.N.) (0:12 JQuivey R.N.) Toradol IV 30 mg (NOW) (:42 09/13/2016 Britney DOMINGUEZ) (Ack 23:51 JQuivey R.N.) (0:12 JQuivey R.N.) Zofran IV 4 mg (NOW) (:43 09/13/2016 Britney DOMINGUEZ) (Ack 23:51 JQuivey R.N.) (0:11 JQuivey R.N.) IV NS : initial bolus 1000 mL (1000 mL/hr), then none - for X1 (NOW); Urgent (23:43 09/13/2016 Britney DOMINGUEZ) (Ack 23:51 JQuivey R.N.) (0:11 JQuivey R.N.) Haldol IV 2 mg (NOW) (00:39 09/14/2016 JQuivey R.N. verbal order read back to Britney DOMINGUEZ) (0:39 JQuivey R.N.) ORDER SHEET NOTES: [Electronically signed by Wilmer Dyer R.N. (01:33 09/14/2016)] [Electronically signed by Michele Lazaro MD (11:54 09/22/2016)] [Electronically locked/signed by Wilmer Dyer R.N. (01:33 09/14/2016)]
--- NOTE | 2016-09-22 11:55 | ED MED RECONCILIATION SUMMARY ---
Patient: LIBERTY GONZALEZ Medication Reconciliation Report [facility] VisitID: [id number] [address] [place] [address] 56y, F Registration Date/Time: 09/13/2016 Weight: 77.1 kg Height/Length: 64 in. BMI: 29.2 ALLERGIES: No Known Drug Allergy The patient's Home Medications are listed below: THE FOLLOWING MEDICATIONS NEED TO BE RECONCILED: Black Cohosh Oral Ibuprofen Oral Multivitamins Oral Pravastatin Sodium Oral, daily, pt unsure of dose The source(s) of the original Home Medication information: Not obtained. The following Medications were given to the patient in the Emergency Department: IV NS IV Fluids bolus 0, then 1000 mL/hr, administered: 09/14/2016 12:02:00 AM Zofran [IVP] IVP 4 mg, administered: 09/14/2016 12:03:00 AM Toradol [IVP] IVP 30 mg, administered: 09/14/2016 12:05:00 AM HALDOL [IVP] IVP 2 mg, administered: 09/14/2016 12:07:00 AM HALDOL [IVP] IVP 2 mg, administered: 09/14/2016 12:39:00 AM The following Medications were prescribed to the patient: None.
--- NOTE | 2016-09-22 11:55 | ED MED RECONCILIATION SUMMARY ---
Patient: LIBERTY GONZALEZ Medication Reconciliation Report [facility] VisitID: [id number] [address] [place] [address] 56y, F Registration Date/Time: 09/13/2016 Weight: 77.1 kg Height/Length: 64 in. BMI: 29.2 ALLERGIES: No Known Drug Allergy The patient's Home Medications are listed below: THE FOLLOWING MEDICATIONS NEED TO BE RECONCILED: Black Cohosh Oral Ibuprofen Oral Multivitamins Oral Pravastatin Sodium Oral, daily, pt unsure of dose The source(s) of the original Home Medication information: Not obtained. The following Medications were given to the patient in the Emergency Department: IV NS IV Fluids bolus 0, then 1000 mL/hr, administered: 09/14/2016 12:02:00 AM Zofran [IVP] IVP 4 mg, administered: 09/14/2016 12:03:00 AM Toradol [IVP] IVP 30 mg, administered: 09/14/2016 12:05:00 AM HALDOL [IVP] IVP 2 mg, administered: 09/14/2016 12:07:00 AM HALDOL [IVP] IVP 2 mg, administered: 09/14/2016 12:39:00 AM The following Medications were prescribed to the patient: None.
--- NOTE | 2016-09-22 11:55 | ED MAR SUMMARY ---
..... Medication Administration Record [facility] [address] [place] [address] Patient: LIBERTY GONZALEZ Visit ID: [id number] 56y, F Weight: 77.1 kg Height/Length: 64 in BMI: 29.2 ALLERGIES: No Known Drug Allergy Start 00:02 09/14/2016 Wilmer Dyer R.N., Stop 01:06 09/14/2016 Wilmer Dyer R.N. Medication Administered: IV NS (SALINE), Dose: IV Fluids over 1 hour(s), Rate: 1000 mL/hr, Dispensed: 1000 mL bag, Site: #1 right AC. Medication Ordered: IV NS : initial bolus 1000 mL (1000 mL/hr), then none - for X1 (NOW); Urgent. Given 00:03 09/14/2016 Wilmer Dyer R.N. Medication Administered: ZOFRAN [IVP] (ONDANSETRON HCL), Dose: 4 mg IVP over 2 minute(s), Site: #1 right AC. Medication Ordered: Zofran IV 4 mg (NOW). Given 00:05 09/14/2016 Wilmer Dyer R.N. Medication Administered: TORADOL [IVP], Dose: 30 mg IVP over 2 minute(s), Site: #1 right AC. Medication Ordered: Toradol IV 30 mg (NOW). Given 00:07 09/14/2016 Wilmer Dyer R.N. Medication Administered: HALDOL [IVP] (HALOPERIDOL LACTATE), Dose: 2 mg IVP over 2 minute(s), Site: #1 right AC. Medication Ordered: Haldol IV 2 mg (HIGH ALERT MEDICATION, NOW). Given 00:39 09/14/2016 Wilmer Dyer R.N. Medication Administered: HALDOL [IVP] (HALOPERIDOL LACTATE), Dose: 2 mg IVP over 1 minute(s), Site: #1 right AC. Medication Ordered: Haldol IV 2 mg (NOW).
--- NOTE | 2016-09-22 11:55 | ED DISCHARGE INSTRUCTIONS ---
Patient: LIBERTY GONZALEZ General Instructions [facility] VisitID: [id number] [place] [address] 56y, F Registration Date/Time: 09/13/2016 Chronic migraine headache- poorly controlled. INSTRUCTIONS No driving or operating machinery while taking medication. Sedative medication was given during your visit. Warnings: Further evaluation is necessary. GENERAL WARNINGS: Return or contact your physician immediately if your condition worsens or changes unexpectedly, if not improving as expected, or if other problems arise. Follow-up: Follow up with your doctor tomorrow. Call for an appointment. Follow up with a neurologist- as recommended by your primary care physician. Understanding of the discharge instructions verbalized by patient and family. ADDITIONAL INFORMATION Migraine Headache Migraine headaches are related to changes in blood flow to the brain. This causes throbbing or constant pain on one or both sides of the head. The pain may last from a few hours to several days. There is usually nausea, vomiting, sensitivity to light and sound, and blurred vision. A migraine attack may be triggered by emotional stress, hormone changes during the menstrual cycle, oral contraceptives, alcohol use, certain foods containing tyramine, eye strain, weather changes, missing meals, or too little or too much sleep. Home Care For This Headache: 1) If you were given pain medicine for this headache, do not drive yourself home . Arrange for a ride, instead. When you get home, try to sleep. You should feel much better when you wake up. 2) Migraine headaches may improve with an ice pack on the forehead or at the base of the skull. Heat to the back of your neck may relieve any neck spasm. 3) Drink only clear liquids or eat a very light diet to avoid nausea/vomiting until symptoms improve. Preventing Future Headaches: 1) Pay attention to those factors that seem to trigger your headache. Try to avoid them when you can. If you have frequent headaches, it is useful to keep a diary of what you were doing, feeling or eating in the hours before each attack. Show this to your doctor to help find the cause of your headaches. a) If you feel that stress is a factor in your headaches, look at the sources of stress in your life. Find ways to release the build-up of those stresses by using regular exercise, relaxation methods (yoga, meditation), bio-feedback or simply taking time-out for yourself. For more information about this, consult your doctor or go to a local bookstore and review books and tapes on this subject. b) Tyramine is a substance present in the following foods : chocolate, yogurt, all cheeses except cottage cheese and cream cheese. smoked or pickled fish and meat (including jean, caviar, bologna, pepperoni, salami), liver, avocados, bananas, figs, raisins, and red wine. Be aware that these foods may trigger a migraine in some persons. Try taking these foods out of your diet for 1-2 months to see if this reduces headache frequency. Treating Future Attacks: 1) At the first sign of a headache, take time out if possible. Find a quiet, dark, comfortable place to sit or lie down. Let yourself relax or sleep. 2) An ice pack on the forehead or area of greatest pain may help. If you are having muscle spasm and tightness of the neck, a heating pad and massage to this area may be helpful. 3) If you have been prescribed a medicine to stop a migraine headache, use this at the very first warning sign of the headache (aura or initial pain) for best results. Follow Up with your doctor if the headache is not better within the next 24 hours. If you have frequent headaches you should discuss a treatment plan with your primary care doctor. Ask if you can have medicine to take at home the next time you get a bad headache. Poorly controlled chronic headaches may require a referral to a neurologist (headache specialist). Get Prompt Medical Attention if any of the following occur: Your head pain gets worse, or does not improve within 24 hours Repeated vomiting (cant keep liquids down) Sinus or ear or throat pain (not already reported) Fever of 100.4 F (38 C) or higher, or as directed by your healthcare provider Stiff neck Extreme drowsiness, confusion or fainting Dizziness, vertigo (dizziness with spinning sensation) Weakness of an arm or leg or one side of the face Difficulty with speech or vision You have been given the following additional information: Headache, Migraine (Classical) No driving or operating machinery while taking medication. Sedative medication was given during your visit. (Electronically signed by Michele Lazaro MD 09/22/2016 11:54)
--- NOTE | 2016-09-22 11:55 | ED MAR SUMMARY ---
..... Medication Administration Record [facility] [address] [place] [address] Patient: LIBERTY GONZALEZ Visit ID: [id number] 56y, F Weight: 77.1 kg Height/Length: 64 in BMI: 29.2 ALLERGIES: No Known Drug Allergy Start 00:02 09/14/2016 Wilmer Dyer R.N., Stop 01:06 09/14/2016 Wilmer Dyer R.N. Medication Administered: IV NS (SALINE), Dose: IV Fluids over 1 hour(s), Rate: 1000 mL/hr, Dispensed: 1000 mL bag, Site: #1 right AC. Medication Ordered: IV NS : initial bolus 1000 mL (1000 mL/hr), then none - for X1 (NOW); Urgent. Given 00:03 09/14/2016 Wilmer Dyer R.N. Medication Administered: ZOFRAN [IVP] (ONDANSETRON HCL), Dose: 4 mg IVP over 2 minute(s), Site: #1 right AC. Medication Ordered: Zofran IV 4 mg (NOW). Given 00:05 09/14/2016 Wilmer Dyer R.N. Medication Administered: TORADOL [IVP], Dose: 30 mg IVP over 2 minute(s), Site: #1 right AC. Medication Ordered: Toradol IV 30 mg (NOW). Given 00:07 09/14/2016 Wilmer Dyer R.N. Medication Administered: HALDOL [IVP] (HALOPERIDOL LACTATE), Dose: 2 mg IVP over 2 minute(s), Site: #1 right AC. Medication Ordered: Haldol IV 2 mg (HIGH ALERT MEDICATION, NOW). Given 00:39 09/14/2016 Wilmer Dyer R.N. Medication Administered: HALDOL [IVP] (HALOPERIDOL LACTATE), Dose: 2 mg IVP over 1 minute(s), Site: #1 right AC. Medication Ordered: Haldol IV 2 mg (NOW).
== END 2016-09-14 01:32 | disposition home or self-care (01) ==
LOC: ED SRH 21:56
DX: G43.719 Chronic migraine without aura, intractable, without status migrainosus (principal); Z79.899 Other long term (current) drug therapy; Z79.1 Long term (current) use of non-steroidal anti-inflammatories (NSAID); F17.210 Nicotine dependence, cigarettes, uncomplicated